=== PATIENT | female | born 1975 | race Caucasian/White ===

== ENCOUNTER 2018-04-10 07:20 | Emergency (ER) | payer OTHER ==
[~2018-04-10] VITALS: Ht 154.9 cm; Wt 81.6 kg
[~2018-04-10 07:20] MED LIST: AZITHROMYCIN250 MG PO; TUSSI PRES-B L120 M1 PO
[2018-04-10] MEDS ORDERED: ORPHENADRINE C100 MG PO (10:30)
[2018-04-10] MEDS ORDERED: KETO10TA2 PO (10:30)
== END 2018-04-10 13:18 | disposition home or self-care (01) ==
LOC: ER 07:20
DX: M94.0 Chondrocostal junction syndrome [Tietze] (principal); R05 Cough

== ENCOUNTER 2023-11-21 17:20 | Inpatient (IN) | payer OTHER ==
[~2023-11-21] VITALS: Ht 154.9 cm; Wt 90.7 kg
[~2023-11-21 17:20] MED LIST changes: +KETO10TA2 PO; +ORPHENADRINE C100 MG PO
--- NOTE | 2023-11-21 18:08 | NUR ---
PACIENTE ALERTA Y ORIENTADA X 3. REFIERE ARDOR Y DOLOR AL ORINAR DESDE EL MEDIO STEVEN. REFIERE ORINADO FRECUENTEMENTE POCA ORINA
[2023-11-21] MEDS ORDERED: KETOROLAC TROMETHAMINE 60 MG VIAL IM ONE (20:45)
[2023-11-21] MEDS ORDERED: PHENAZOPYRIDINE HCL 100 MG TABLET PO ONE (21:00)
--- NOTE | 2023-11-21 21:52 | NUR ---
MAI CANCEL EDUCA A PTE SOBRE TX A RECIBIR EN EL AREA A PTE LA MISMA REFIERE ENTENDER, REALIZA ORDENES DE DR BROWN EN CARMONA TOTALIDAD.
[2023-11-21 22:11] LABS: URINE APPEARANCE Turbid; URINE BILIRRUBIN Negative (NEGATIVE); URINE BLOOD Large; URINE COLOR Yellow; URINE GLUCOSE Negative (NEGATIVE); URINE LEUKOCYTE Large; URINE NITRATE Positive; URINE UROBILINOGEN 0.2 E.U./dl
[2023-11-21 22:15] LABS: URINE EPITHELIAL CELLS 28.4 uL (0.0-38.8); URINE RBC 335.2 uL (0.0-20.8); URINE WBC 3667.8 uL (0.0-23.2)
[2023-11-21 22:22] LABS: HEMATOCRIT 39.3 % (36.0-45.00); HEMOGLOBIN 13.4 g/dL (12.0-15.00); MEAN CELL VOLUME 85.3 fL (80.00-100.00); PLATELET COUNT 245 K/uL (150-450); RED CELL DISTRIBUTION WIDTH 13.9 % (11.5-14.5)
[2023-11-21 22:25] LABS: URINE BACTERIA > 9821.5 uL (0.0-1933); URINE PROTEIN 100 (NEGATIVE)
[2023-11-21 22:30] LABS: CALCIUM 8.7 mg/dL (8.5-10.1); CREATININE SERUM 0.61 mg/dL (0.55-1.02); GFR 103.82; POTASSIUM 3.87 mEq/L (3.5-5.1)
[2023-11-21] MEDS ORDERED: CEFTRIAXONE SODIUM 2,000 MG VIAL IV SCH (22:54)
[2023-11-21] MEDS ORDERED: 0.9 % SODIUM CHLORIDE 1,000 ML IV ONE (23:00)
[2023-11-21] MEDS ORDERED: ACETAMINOPHEN 500 MG GEL..CAP PO PRN (23:45)
[2023-11-21] MEDS ORDERED: KETOROLAC TROMETHAMINE 15 MG VIAL IU PRN (23:45)
[2023-11-21] MEDS ORDERED: 0.9 % SODIUM CHLORIDE 1,000 ML IV SCH (23:45)
[2023-11-21] MEDS ORDERED: ONDANSETRON HCL 4 MG in 0.9 % SODIUM CHLORIDE 50 ML IV PRN (23:45)
[2023-11-22 01:46] LABS: INR 0.97; PARTIAL THROMBOPLASTIN TIME 23.8 SECONDS (22.0-34.0); PROTHROMBIN TIME 10.2 SECONDS (9.0-11.5)
[2023-11-22] MEDS ORDERED: KETOROLAC TROMETHAMINE 30 MG VIAL IV PRN (06:45)
[2023-11-22] MEDS ORDERED: FAMOTIDINE/PF 20 MG in 0.9 % SODIUM CHLORIDE 8 ML IV PUSH SCH (09:00)
[2023-11-23 06:26] LABS: HEMATOCRIT 34.7 % (36.0-45.00); HEMOGLOBIN 11.9 g/dL (12.0-15.00); MEAN CELL VOLUME 86.3 fL (80.00-100.00); MEAN CORPUSCULAR HEMOGLOBIN 29.7 pg (27.00-32.0); MEAN CORPUSCULAR HGB CONC 34.4 g/dl (32.0-36.0); PLATELET COUNT 220 K/uL (150-450); RED BLOOD COUNT 4.01 M/uL (4.00-6.00); RED CELL DISTRIBUTION WIDTH 13.6 % (11.5-14.5)
[2023-11-23 06:46] LABS: PH,URINE 5.5 (5.0-8.0); URINE APPEARANCE Cloudy; URINE BILIRRUBIN Negative (NEGATIVE); URINE BLOOD Negative; URINE COLOR Yellow; URINE GLUCOSE Negative (NEGATIVE); URINE LEUKOCYTE Trace; URINE NITRATE Negative; URINE PROTEIN Negative (NEGATIVE); URINE UROBILINOGEN 0.2 E.U./dl
[2023-11-23 06:47] LABS: URINE BACTERIA 13.8 uL (0.0-1933); URINE EPITHELIAL CELLS 22.3 uL (0.0-38.8); URINE RBC 2.5 uL (0.0-20.8); URINE WBC 17.9 uL (0.0-23.2)
[2023-11-23 06:50] LABS: ALBUMIN 2.9 gm/dL (3.4-5.0); BILIRUBIN TOTAL 0.32 mg/dL (0.3-1.2); CREATININE SERUM 0.48 mg/dL (0.55-1.02); GFR 136.9; GLOBULINA 3.4 G/DL (2.4-3.5); MAGNESIUM 1.9 mg/dL (1.8-2.4); PHOSPHOROUS 3.3 mg/dL (2.5-4.9); POTASSIUM 4.25 mEq/L (3.5-5.1); TOTAL PROTEIN 6.3 gm/dL (6.4-8.2)
[2023-11-23 06:59] LABS: C-REACTIVE PROTEIN 1.71 MG/DL (0.00-0.29)
[2023-11-23 07:00] LABS: CALCIUM 8.1 mg/dL (8.5-10.1)
== END 2023-11-24 20:09 | disposition home or self-care (01) | DRG 690 ==
LOC: ER 17:20 → MEDJ 23:37
PROVIDERS: General Practice; Internal Medicine Infectious Disease; Nurse Practitioner Family; ADMIT Internal Medicine; ATTEND Internal Medicine
PROC: BW21ZZZ Computerized Tomography (CT Scan) of Abdomen and Pelvis (ICD-10-PCS; principal; 2023-11-21)
DX: N39.0 Urinary tract infection, site not specified (principal); B96.20 Unspecified Escherichia coli [E. coli] as the cause of diseases classified elsewhere; Z20.822 Contact with and (suspected) exposure to COVID-19

== ENCOUNTER 2024-03-05 20:32 | Emergency (ER) | payer OTHER ==
[~2024-03-05] VITALS: Ht 154.9 cm; Wt 94.8 kg
[2024-03-05] MEDS ORDERED: FAMOTIDINE/PF 20 MG in 0.9 % SODIUM CHLORIDE 8 ML IV PUSH STA (21:38)
[2024-03-05] MEDS ORDERED: ONDANSETRON HCL 2 MG/ML VIAL IV ONE (21:45)
[2024-03-05] MEDS ORDERED: KETOROLAC TROMETHAMINE 30 MG VIAL IV ONE (21:45)
[2024-03-05] MEDS ORDERED: 0.9 % SODIUM CHLORIDE 1,000 ML IV SCH (21:45)
[2024-03-05 22:12] LABS: HEMATOCRIT 40.7 % (36.0-45.00); HEMOGLOBIN 14.4 g/dL (12.0-15.00); MEAN CELL VOLUME 84.4 fL (80.00-100.00); MEAN CORPUSCULAR HEMOGLOBIN 29.8 pg (27.00-32.0); MEAN CORPUSCULAR HGB CONC 35.3 g/dl (32.0-36.0); PLATELET COUNT 294 K/uL (150-450); RED BLOOD COUNT 4.82 M/uL (4.00-6.00); RED CELL DISTRIBUTION WIDTH 12.7 % (11.5-14.5)
[2024-03-05 23:31] LABS: ALBUMIN 3.8 gm/dL (3.4-5.0); BILIRUBIN TOTAL 0.7 mg/dL (0.3-1.2); CALCIUM 9.1 mg/dL (8.5-10.1); CREATININE SERUM 0.6 mg/dL (0.55-1.02); GFR 105.39; GLOBULINA 4.3 G/DL (2.4-3.5); POTASSIUM 3.55 mEq/L (3.5-5.1); TOTAL PROTEIN 8.1 gm/dL (6.4-8.2)
[2024-03-05] MEDS ORDERED: PEPCID AC20 MG PO (23:49)
[2024-03-05] MEDS ORDERED: ONDANSETRON ODT8 MG PO (23:49)
[2024-03-05] MEDS ORDERED: LEVSIN/SL0.125 MG SL (23:49)
== END 2024-03-06 00:33 | disposition home or self-care (01) ==
LOC: ER 20:33
PROVIDERS: General Practice
DX: K29.60 Other gastritis without bleeding (principal); R10.9 Unspecified abdominal pain; Z20.822 Contact with and (suspected) exposure to COVID-19

== ENCOUNTER 2025-04-29 07:15 | Inpatient (IN) | payer OTHER ==
[~2025-04-29] VITALS: Ht 154.9 cm; Wt 95.3 kg
[~2025-04-29 07:15] MED LIST changes: +LEVSIN/SL0.125 MG SL; +ONDANSETRON ODT8 MG PO; +PEPCID AC20 MG PO
[2025-04-29 08:31] VITALS: BP 123/84
[2025-04-29 09:27] LABS: URINE APPEARANCE Cloudy; URINE BILIRRUBIN Negative (NEGATIVE); URINE BLOOD Negative; URINE COLOR Yellow; URINE GLUCOSE Negative (NEGATIVE); URINE KETONE Negative (NEGATIVE); URINE LEUKOCYTE Small; URINE NITRATE Negative; URINE PROTEIN Negative (NEGATIVE); URINE UROBILINOGEN 0.2 E.U./dl
[2025-04-29 09:31] LABS: URINE BACTERIA 5175.5 uL (0.0-1933); URINE EPITHELIAL CELLS 97.8 uL (0.0-38.8); URINE RBC 6.7 uL (0.0-20.8); URINE WBC 141.0 uL (0.0-23.2)
[2025-04-29 09:36] LABS: BASO % 0.7 % (0.1-1.2); EOS # 0.05 (0.04-0.54); EOS % 0.6 % (0.7-7.0); LYMPH # 2.81 (1.18-3.74); LYMPH % 32.2 % (19.3-53.1); MEAN PLATELET VOLUME 11.20 fl (9.4-12.4); MONO # 0.58 (0.24-0.82); MONO % 6.7 % (4.7-12.5); NEUT # 5.21 (1.56-6.13); NEUT % 59.7 % (34.0-71.1); RED CELL DISTRIBUTION WIDTH 12.5 % (11.6-14.4)
[2025-04-29 09:45] LABS: URINE CAST 1.02 uL (0.0-1.40)
[2025-04-29 09:53] LABS: INR 0.96
[2025-04-29 11:30] LABS: ALT/SGPT 40.0 U/L (12-78); AST/SGOT 16.0 U/L (15-37); BILIRUBIN TOTAL 0.51 mg/dL (0.3-1.2); BUN CREA RATIO 23.0 (7.0-25.0); CREATININE SERUM 0.53 mg/dL (0.55-1.02); GFR 121.14; GLOBULINA 3.8 G/DL (2.4-3.5); GLUCOSE FASTING 103.0 mg/dL (65-100); OSMOLALITY SERUM 285.0 MOSM/KG (275-295); TSH 1.17 uIU/mL (0.358-3.74)
[2025-05-02] MEDS ORDERED: POVIDONE-IODINE 118 ML BOTT TOP ONE (06:54)
[2025-05-02] MEDS ORDERED: BUPIVACAINE HCL/Mpf 0.5% 10ML VIAL ONE (06:54)
[2025-05-02] MEDS ORDERED: CEFOXITIN SODIUM 2,000 MG VIAL IV ONE (06:59)
[2025-05-02] MEDS ORDERED: SUGAMMADEX SODIUM 200 MG/2 ML VIAL IV ONE (08:59)
[2025-05-02] MEDS ORDERED: RINGERS SOLUTION,LACTATED 1,000 ML IV SCH (10:15)
[2025-05-02] MEDS ORDERED: MORPHINE SULFATE 4 MG/ML VIAL IV ONE ×2 (10:15→10:45)
[2025-05-02] MEDS ORDERED: MORPHINE SULFATE 4 MG/ML CARTRIDGE IV SCH (12:00)
[2025-05-02] MEDS ORDERED: PROMETHAZINE HCL 50 MG/ML AMPUL IM SCH (12:00)
[2025-05-02 12:28] LABS: BASO % 0.3 % (0.1-1.2); EOS # 0.00 (0.04-0.54); EOS % 0.0 % (0.7-7.0); LYMPH # 1.53 (1.18-3.74); LYMPH % 7.9 % (19.3-53.1); MEAN PLATELET VOLUME 11.30 fl (9.4-12.4); MONO # 0.93 (0.24-0.82); MONO % 4.8 % (4.7-12.5); NEUT # 16.91 (1.56-6.13); NEUT % 86.6 % (34.0-71.1); RED CELL DISTRIBUTION WIDTH 12.6 % (11.6-14.4)
[2025-05-02] MEDS ORDERED: SIMETHICONE 125 MG CAPSULE PO SCH (17:00)
[2025-05-02 19:17] VITALS: BP 139/79
[2025-05-03 00:27] VITALS: BP 150/70
[2025-05-03 04:30] VITALS: BP 138/83
[2025-05-03 08:00] VITALS: BP 132/84
[2025-05-03] MEDS ORDERED: ACETAMINOPHEN WITH CODEINE 1 UDTAB TABLET PO STA (08:53)
[2025-05-03] MEDS ORDERED: NAPR500T14 PO (08:58)
[2025-05-03] MEDS ORDERED: Tylenol #3 PO (08:58)
== END 2025-05-03 11:13 | disposition home or self-care (01) | DRG 743 ==
LOC: O/R 05-02 06:00 → SURG 05-02 07:15 → OB/GYN 05-02 13:41
PROVIDERS: ADMIT Obstetrics & Gynecology; ATTEND Obstetrics & Gynecology
PROC: 0UT20ZZ Resection of Bilateral Ovaries, Open Approach (ICD-10-PCS; 2025-05-02)
PROC: 0UT70ZZ Resection of Bilateral Fallopian Tubes, Open Approach (ICD-10-PCS; 2025-05-02)
PROC: 0JQC0ZZ Repair Pelvic Region Subcutaneous Tissue and Fascia, Open Approach (ICD-10-PCS; 2025-05-02)
PROC: 0USG0ZZ Reposition Vagina, Open Approach (ICD-10-PCS; 2025-05-02)
PROC: 0TJB8ZZ Inspection of Bladder, Via Natural or Artificial Opening Endoscopic (ICD-10-PCS; 2025-05-02)
PROC: 0UT97ZZ Resection of Uterus, Via Natural or Artificial Opening (ICD-10-PCS; principal; 2025-05-02 12:30)
DX: N84.0 Polyp of corpus uteri (principal); N80.03 Adenomyosis of the uterus; N81.11 Cystocele, midline